=== PATIENT | male | born 1970 | race Caucasian/White ===

== ENCOUNTER 2022-10-23 14:24 | Outpatient (CLI) | payer OTHER | END 2022-10-23 14:25 | disposition home or self-care (01) | LOC: CSHRAD 14:24 | PROVIDERS: ATTEND Family Medicine | DX: M75.52 Bursitis of left shoulder (principal) | CPT/HCPCS: 72040 ==

== ENCOUNTER 2023-02-16 06:37 | Day surgery (SDC) | payer OTHER ==
[2023-02-12 15:34] VITALS: BMI 29.2
[2023-02-16] MEDS ORDERED: PROPOFOL 40 ML ONE (07:50)
[2023-02-16] MEDS ORDERED: Lidocaine 2% MPF 10 ML AMP (For Epidural Use) ONE (07:50)
[2023-02-16] MEDS ORDERED: PROPOFOL 20 ML ONE (08:40)
== END 2023-02-16 09:26 | disposition home or self-care (01) ==
LOC: CSHSDC 06:37
PROVIDERS: ATTEND Internal Medicine Gastroenterology
PROC: 0DBN8ZZ Excision of Sigmoid Colon, Via Natural or Artificial Opening Endoscopic (ICD-10-PCS; principal; 2023-02-16)
DX: Z12.11 Encounter for screening for malignant neoplasm of colon (principal); D12.5 Benign neoplasm of sigmoid colon; K64.8 Other hemorrhoids; F17.210 Nicotine dependence, cigarettes, uncomplicated; Z88.0 Allergy status to penicillin
CPT/HCPCS: 88305; J2704